=== PATIENT | male | born 1935 | race Caucasian/White ===

== ENCOUNTER 2019-02-12 14:08 | Inpatient (IN) ==
[2019-02-12] MEDS ORDERED: AZITHROMYCIN INJ 500 MG in SODIUM CHLORIDE 0.9% 250 ML IV STA (16:06)
[2019-02-12] MEDS ORDERED: ALBUTEROL/IPRATROPIUM 3 ML NEB RESP TX STA (16:06)
[2019-02-12] MEDS ORDERED: cefTRIAXone 1,000 MG in SODIUM CHLORIDE 0.9% 100 ML IV STA (16:06)
[2019-02-12 16:32] LABS: Basophils # 0.1 10*3/uL (0.0-0.2); Basophils % 0.8 % (0.0-0.8); Eosinophils # 0.2 10*3/uL (0.0-0.87); Eosinophils % 2.3 % (0.00-10.9); Hematocrit 38.5 VOL% (42.0-52.0); Hemoglobin 11.9 GM/DL (14.0-18.0); Immature Granulocytes % 0.9 %; Immature Granulocytes Absolute 0.07 #; Lymphocytes # 1.2 10*3/uL (1.4-4.0); Lymphocytes % 16.2 % (21.2-54.2); Mean Corpuscular HGB Conc 30.9 GM/DL (32-36); Mean Platelet Volume 11.3 FL (9.6-12.0); Neutrophils % 71.8 % (38.7-73.9); Platelet Count 151 T/CUMM (130-400); Red Blood Count 4.23 MC/CUMM (3.8-5.5); Red Cell Distribution Width 15.3 % (9.3-17.3); White Blood Count 7.5 T/CUMM (4-12)
[2019-02-12 16:56] LABS: Bilirubin,Total 0.6 MG/DL (0.2-1.0); Calcium 8.3 MG/DL (8.5-10.1); Osmolality,Calculated 294.3 MOS/KG (273-304); Total Protein 6.8 G/DL (6.4-8.3)
[2019-02-12] MEDS ORDERED: guaiFENesin/CODEINE 5 ML LIQUID PO PRN (18:09)
[2019-02-12] MEDS ORDERED: MAGNESIUM SULF RIDER 2 GM in PREMIX 1 EACH IV PRN (18:09)
[2019-02-12] MEDS ORDERED: POTASSIUM CHLORIDE RIDER 10 MEQ in PREMIX 1 EACH IV PRN (18:09)
[2019-02-12] MEDS ORDERED: MAGNESIUM SULF RIDER 4 GM in PREMIX 1 EACH IV PRN (18:09)
[2019-02-12] MEDS ORDERED: ALBUTEROL 2.5 MG/3 ML NEB RESP TX PRN (18:12)
[2019-02-12] MEDS ORDERED: ACETAMINOPHEN 325 MG TABLET PO ONE (19:38)
[2019-02-12] MEDS: ALBUTEROL/IPRATROPIUM 3 ML NEB RESP TX SCH (21:25)
[2019-02-12] MEDS: methylPREDNISolone SOD SUC 40 MG/1 ML VIAL IV SCH (22:18)
[2019-02-12] MEDS: guaiFENesin/DM ER 600-30 MG TABLET PO SCH (22:18)
[2019-02-12] MEDS: SODIUM CHLORIDE 23.4% CONC INJ 38.5 MEQ in STERILE WATER INJ 1,000 ML IV SCH (22:26)
[2019-02-13] MEDS: ALBUTEROL/IPRATROPIUM 3 ML NEB RESP TX SCH ×4 (01:02→20:20)
[2019-02-13 03:08] LABS: Apearance,Urine CLEAR (Clear); Bilirubin,Urine Negative (Negative); Blood, Urine Negative (Negative); Glucose,Urine (UA) Negative (Negative); Ketones,Urine Negative (Negative); Mucus,Urine Occasional /LPF (Occasional); Nitrite,Urine Negative (Negative); Protein,Urine 30 MG/DL; RBC,Urine 30 /HPF (0-4); Squamous Epithelial Cell,Urine Occasional /HPF (0-10); Urine Color Amber (Yellow); Urine Specific Gravity 1.029 (1.001-1.035); WBC,Urine 1 /HPF (0-6)
[2019-02-13 04:55] LABS: Basophils % 0.3 % (0.0-0.8); Eosinophils % 0.1 % (0.00-10.9); Hematocrit 37.3 VOL% (42.0-52.0); Hemoglobin 11.3 GM/DL (14.0-18.0); Immature Granulocytes % 0.6 %; Immature Granulocytes Absolute 0.05 #; Lymphocytes # 0.5 10*3/uL (1.4-4.0); Mean Corpuscular HGB Conc 30.3 GM/DL (32-36); Mean Corpuscular Volume 92.1 FL (87-102); Mean Platelet Volume 11.6 FL (9.6-12.0); Monocytes % 2.2 % (1.7-12.7); Neutrophils % 90.8 % (38.7-73.9); Platelet Count 148 T/CUMM (130-400); Red Blood Count 4.05 MC/CUMM (3.8-5.5); Red Cell Distribution Width 15.2 % (9.3-17.3); White Blood Count 7.9 T/CUMM (4-12)
[2019-02-13 05:17] LABS: Lymphocytes 4 % (20-55); Platelet Estimate Normal; Segmented Neutrophils 94 % (50-85); Total Cells Counted 100
[2019-02-13 05:18] LABS: Hypochromasia Slight; Ovalocytes Slight
[2019-02-13 05:21] LABS: Calcium 8.1 MG/DL (8.5-10.1); Osmolality,Calculated 291.8 MOS/KG (273-304)
[2019-02-13] MEDS ORDERED: ASPIRIN EC 81 MG TABLET PO SCH (06:00)
[2019-02-13] MEDS ORDERED: APIXABAN 5 MG TABLET PO SCH (06:00)
[2019-02-13] MEDS: methylPREDNISolone SOD SUC 40 MG/1 ML VIAL IV SCH ×3 (06:33→20:57)
[2019-02-13] MEDS: LEVOTHYROXINE 50 MCG TABLET PO SCH (06:34)
[2019-02-13] MEDS: MULTIVITAMIN (OCUVITE) TABLET PO SCH (08:51)
[2019-02-13] MEDS: guaiFENesin/DM ER 600-30 MG TABLET PO SCH ×2 (08:51→20:58)
[2019-02-13] MEDS: MULTIVITAMIN (CENTRUM) TABLET PO SCH (08:51)
[2019-02-13] MEDS: PRAMIPEXOLE 0.25 MG TABLET PO SCH ×3 (08:51→21:07)
[2019-02-13] MEDS: FUROSEMIDE 40 MG TABLET PO SCH ×2 (08:51→15:16)
[2019-02-13] MEDS: AMIODARONE 200 MG TABLET PO SCH ×2 (08:51→20:58)
[2019-02-13] MEDS: CALCIUM (CARBONATE)/VITAMIN D 600 MG-400 UNIT TABLET PO SCH (08:52)
[2019-02-13] MEDS: cefTRIAXone 1,000 MG in SYRINGE 1 EACH IV SCH (08:52)
[2019-02-13] MEDS: QUEtiapine 25 MG TABLET PO SCH (08:52)
[2019-02-13] MEDS: MEMANTINE 10 MG TABLET PO SCH ×2 (08:52→21:07)
[2019-02-13] MEDS: APIXABAN 5 MG TABLET PO SCH ×2 (10:51→20:57)
[2019-02-13] MEDS ORDERED: ENOXAPARIN 40 MG/0.4 ML SYRINGE SUBCUT SCH (12:00)
[2019-02-13] MEDS: ROSUVASTATIN 20 MG TABLET PO SCH (17:29)
[2019-02-13] MEDS: SODIUM CHLORIDE 23.4% CONC INJ 38.5 MEQ in STERILE WATER INJ 1,000 ML IV SCH (17:31)
[2019-02-13] MEDS: SODIUM CHLORIDE 3% 4 ML NEB RESP TX SCH (20:20)
[2019-02-13] MEDS: AZITHROMYCIN INJ 500 MG in SODIUM CHLORIDE 0.9% 250 ML IV SCH (21:08)
[2019-02-14] MEDS: ALBUTEROL/IPRATROPIUM 3 ML NEB RESP TX SCH ×4 (00:28→20:27)
[2019-02-14 05:28] LABS: Basophils % 0.1 % (0.0-0.8); Hematocrit 35.1 VOL% (42.0-52.0); Hemoglobin 11.2 GM/DL (14.0-18.0); Immature Granulocytes % 0.9 %; Immature Granulocytes Absolute 0.13 #; Lymphocytes # 0.4 10*3/uL (1.4-4.0); Mean Corpuscular HGB Conc 31.9 GM/DL (32-36); Mean Corpuscular Volume 88.6 FL (87-102); Mean Platelet Volume 11.5 FL (9.6-12.0); Monocytes % 3.5 % (1.7-12.7); Neutrophils % 92.5 % (38.7-73.9); Platelet Count 146 T/CUMM (130-400); Red Blood Count 3.96 MC/CUMM (3.8-5.5); Red Cell Distribution Width 15.4 % (9.3-17.3); White Blood Count 14.5 T/CUMM (4-12)
[2019-02-14 05:49] LABS: Calcium 7.8 MG/DL (8.5-10.1); Osmolality,Calculated 295.7 MOS/KG (273-304)
[2019-02-14] MEDS: methylPREDNISolone SOD SUC 40 MG/1 ML VIAL IV SCH ×2 (05:58→17:47)
[2019-02-14] MEDS: LEVOTHYROXINE 50 MCG TABLET PO SCH (06:02)
[2019-02-14 06:07] LABS: Band Neutrophils 3 % (0-10); Hypochromasia 1+; Lymphocytes 3 % (20-55); Microcytosis Slight; Myelocytes 1 %; Segmented Neutrophils 91 % (50-85); Total Cells Counted 100
[2019-02-14 06:08] LABS: Ovalocytes Slight; Platelet Estimate Adequate
[2019-02-14] MEDS: SODIUM CHLORIDE 3% 4 ML NEB RESP TX SCH ×2 (08:00→23:50)
[2019-02-14] MEDS ORDERED: FUROSEMIDE 40 MG TABLET PO SCH (09:01)
[2019-02-14] MEDS: AMIODARONE 200 MG TABLET PO SCH ×2 (09:49→20:54)
[2019-02-14] MEDS: MEMANTINE 10 MG TABLET PO SCH ×2 (09:49→20:54)
[2019-02-14] MEDS: PRAMIPEXOLE 0.25 MG TABLET PO SCH ×3 (09:49→20:54)
[2019-02-14] MEDS: MULTIVITAMIN (CENTRUM) TABLET PO SCH (09:49)
[2019-02-14] MEDS: MULTIVITAMIN (OCUVITE) TABLET PO SCH (09:49)
[2019-02-14] MEDS: QUEtiapine 25 MG TABLET PO SCH (09:50)
[2019-02-14] MEDS: guaiFENesin/DM ER 600-30 MG TABLET PO SCH ×2 (09:50→20:54)
[2019-02-14] MEDS: APIXABAN 5 MG TABLET PO SCH ×2 (09:50→20:54)
[2019-02-14] MEDS: cefTRIAXone 1,000 MG in SYRINGE 1 EACH IV SCH (09:50)
[2019-02-14] MEDS: CALCIUM (CARBONATE)/VITAMIN D 600 MG-400 UNIT TABLET PO SCH (09:50)
[2019-02-14] MEDS: FUROSEMIDE 40 MG TABLET PO SCH (09:51)
[2019-02-14] MEDS: ROSUVASTATIN 20 MG TABLET PO SCH (17:47)
[2019-02-14] MEDS: AZITHROMYCIN INJ 500 MG in SODIUM CHLORIDE 0.9% 250 ML IV SCH (20:55)
[2019-02-15] MEDS: ALBUTEROL/IPRATROPIUM 3 ML NEB RESP TX SCH ×2 (00:05→07:40)
[2019-02-15 06:03] LABS: Basophils % 0.2 % (0.0-0.8); Immature Granulocytes % 1.4 %; Immature Granulocytes Absolute 0.22 #; Lymphocytes # 0.5 10*3/uL (1.4-4.0); Lymphocytes % 3.2 % (21.2-54.2); Mean Corpuscular HGB Conc 31.4 GM/DL (32-36); Mean Corpuscular Volume 89.5 FL (87-102); Mean Platelet Volume 11.6 FL (9.6-12.0); Neutrophils % 92.2 % (38.7-73.9); Platelet Count 154 T/CUMM (130-400); Red Blood Count 3.91 MC/CUMM (3.8-5.5); Red Cell Distribution Width 15.6 % (9.3-17.3); White Blood Count 15.2 T/CUMM (4-12)
[2019-02-15] MEDS: methylPREDNISolone SOD SUC 40 MG/1 ML VIAL IV SCH (06:11)
[2019-02-15] MEDS: LEVOTHYROXINE 50 MCG TABLET PO SCH (06:11)
[2019-02-15 06:22] LABS: Calcium 8.1 MG/DL (8.5-10.1); Osmolality,Calculated 290.1 MOS/KG (273-304)
[2019-02-15 06:23] LABS: Lymphocytes 5 % (20-55); Platelet Estimate Adequate; Segmented Neutrophils 93 % (50-85); Total Cells Counted 100
[2019-02-15 06:24] LABS: Ovalocytes Few
[2019-02-15] MEDS: SODIUM CHLORIDE 3% 4 ML NEB RESP TX SCH (07:40)
[2019-02-15] MEDS ORDERED: predniSONE 20 MG TABLET PO SCH (09:00)
[2019-02-15] MEDS: cefTRIAXone 1,000 MG in SYRINGE 1 EACH IV SCH (09:51)
[2019-02-15] MEDS: MULTIVITAMIN (OCUVITE) TABLET PO SCH (09:52)
[2019-02-15] MEDS: guaiFENesin/DM ER 600-30 MG TABLET PO SCH (09:52)
[2019-02-15] MEDS: QUEtiapine 25 MG TABLET PO SCH (09:52)
[2019-02-15] MEDS: AMIODARONE 200 MG TABLET PO SCH (09:52)
[2019-02-15] MEDS: PRAMIPEXOLE 0.25 MG TABLET PO SCH (09:52)
[2019-02-15] MEDS: MEMANTINE 10 MG TABLET PO SCH (09:53)
[2019-02-15] MEDS: APIXABAN 5 MG TABLET PO SCH (09:53)
[2019-02-15] MEDS: CALCIUM (CARBONATE)/VITAMIN D 600 MG-400 UNIT TABLET PO SCH (09:53)
[2019-02-15] MEDS: MULTIVITAMIN (CENTRUM) TABLET PO SCH (09:53)
[2019-02-15 12:10] VITALS: BP 128/64
== END 2019-02-15 13:25 | disposition home or self-care (01) | DRG 190 ==
LOC: N.EDINP 14:08 → N.ED 14:08 → SUATTDRO 18:23 → N.5E 20:46
PROVIDERS: ADMIT Internal Medicine; ATTEND Internal Medicine

== ENCOUNTER 2019-09-08 01:28 | Inpatient (IN) ==
[2019-09-08] MEDS ORDERED: ACETAMINOPHEN 500 MG TABLET PO STA (01:44)
[2019-09-08] MEDS ORDERED: SODIUM CHLORIDE 0.9% 1,000 ML IV STA ×2 (01:44→04:21)
[2019-09-08 02:43] LABS: Basophils % 0.5 % (0.0-0.8); Eosinophils % 0.4 % (0.00-10.9); Hematocrit 27.3 VOL% (42.0-52.0); Hemoglobin 8.4 GM/DL (14.0-18.0); Immature Granulocytes % 1.4 %; Immature Granulocytes Absolute 0.11 #; Lymphocytes # 0.3 10*3/uL (1.4-4.0); Lymphocytes % 4.2 % (21.2-54.2); Mean Corpuscular HGB Conc 30.8 GM/DL (32-36); Mean Corpuscular Volume 89.5 FL (87-102); Mean Platelet Volume 10.2 FL (9.6-12.0); Monocytes % 2.6 % (1.7-12.7); Neutrophils % 90.9 % (38.7-73.9); Platelet Count 172 T/CUMM (130-400); Red Blood Count 3.05 MC/CUMM (3.8-5.5); Red Cell Distribution Width 17.2 % (9.3-17.3)
[2019-09-08 02:56] LABS: INR 1.2; PT Patient Result 12.5 SECS (9.8-11.9)
[2019-09-08 03:10] LABS: Albumin 2.4 G/DL (3.4-5.0); Bilirubin,Total 1.2 MG/DL (0.2-1.0); Total Protein 5.9 G/DL (6.4-8.3)
[2019-09-08 03:43] LABS: Band Neutrophils 3 % (0-10); Eosinophils 1 % (0-10); Lymphocytes 3 % (20-55); Microcytosis 1+; Platelet Estimate Normal; Segmented Neutrophils 92 % (50-85); Total Cells Counted 100
[2019-09-08 03:44] LABS: Hypochromasia Slight; Polychromasia Slight
[2019-09-08 03:49] LABS: Apearance,Urine Slightly Hazy (Clear); Bacteria,Urine Occasional /HPF (Few); Bilirubin,Urine Negative (Negative); Blood, Urine Small mg/dL (Negative); Glucose,Urine (UA) Negative (Negative); Ketones,Urine Negative (Negative); Mucus,Urine Occasional /LPF (Occasional); Nitrite,Urine Negative (Negative); Protein,Urine Negative; RBC,Urine 9 /HPF (0-4); Urine Color Yellow (Yellow); Urine Urobilinogen < 2.0 EU/DL (0.2-1.0); WBC,Urine 13 /HPF (0-6)
[2019-09-08] MEDS ORDERED: cefTRIAXone 1,000 MG in SODIUM CHLORIDE 0.9% 100 ML IV STA (04:04)
[2019-09-08 05:43] LABS: Basophils % 0.2 % (0.0-0.8); Hematocrit 22.9 VOL% (42.0-52.0); Hemoglobin 7.2 GM/DL (14.0-18.0); Immature Granulocytes % 7.3 %; Immature Granulocytes Absolute 0.69 #; Lymphocytes # 0.5 10*3/uL (1.4-4.0); Lymphocytes % 5.7 % (21.2-54.2); Mean Corpuscular HGB Conc 31.4 GM/DL (32-36); Mean Corpuscular Volume 87.7 FL (87-102); Mean Platelet Volume 10.2 FL (9.6-12.0); Neutrophils % 79.8 % (38.7-73.9); Platelet Count 145 T/CUMM (130-400); Red Blood Count 2.61 MC/CUMM (3.8-5.5); White Blood Count 9.5 T/CUMM (4-12)
[2019-09-08] MEDS ORDERED: ACETAMINOPHEN 325 MG TABLET PO PRN (05:56)
[2019-09-08] MEDS ORDERED: ZALEPLON 5 MG CAPSULE PO PRN (05:56)
[2019-09-08] MEDS ORDERED: hydrALAZINE 20 MG/1 ML VIAL IV PRN (05:56)
[2019-09-08] MEDS ORDERED: GLUCAGON 1 MG VIAL IM PRN (05:56)
[2019-09-08] MEDS ORDERED: PROMETHAZINE 25 MG/1 ML VIAL IM PRN (05:56)
[2019-09-08] MEDS ORDERED: ONDANSETRON 4 MG/2 ML VIAL IV PRN (05:56)
[2019-09-08] MEDS ORDERED: diphenhydrAMINE CAP 25 MG CAPSULE PO PRN (05:56)
[2019-09-08] MEDS ORDERED: DEXTROSE 50% 25 GM/50 ML VIAL IV PRN (05:56)
[2019-09-08] MEDS ORDERED: guaiFENesin/DM ER 600-30 MG TABLET PO PRN (05:56)
[2019-09-08] MEDS ORDERED: NICOTINE 21 MG/24 HR PATCH TRANSDERM PRN (05:56)
[2019-09-08] MEDS ORDERED: DOCUSATE SODIUM 100 MG CAPSULE PO PRN (05:56)
[2019-09-08] MEDS ORDERED: SODIUM CHLORIDE 0.9% 1,000 ML IV PRN (06:00)
[2019-09-08 06:26] LABS: Folate 14.9 NG/ML (5.4-24.0); Vitamin B12 676 PG/ML (211-911)
[2019-09-08 06:40] LABS: Band Neutrophils 18 % (0-10); Lymphocytes 5 % (20-55); Platelet Estimate Adequate; Segmented Neutrophils 74 % (50-85); Total Cells Counted 100
[2019-09-08 06:41] LABS: Smudge Cells Few
[2019-09-08 06:43] LABS: Anisocytosis 2+
[2019-09-08 06:57] LABS: Sedimentation Rate-Westergren 55 MM/HR (0-20)
[2019-09-08] MEDS: PANTOPRAZOLE 40 MG TABLET PO SCH (09:30)
[2019-09-08] MEDS: cefTRIAXone 1,000 MG in SYRINGE 1 EACH IV SCH (09:30)
[2019-09-08] MEDS: SODIUM CHLORIDE 0.9% 1,000 ML IV SCH (09:31)
[2019-09-08 17:14] LABS: Hematocrit 27.2 VOL% (42.0-52.0); Hemoglobin 8.8 GM/DL (14.0-18.0)
[2019-09-09] MEDS: SODIUM CHLORIDE 0.9% 1,000 ML IV SCH ×2 (01:26→13:27)
[2019-09-09] MEDS: cefTRIAXone 1,000 MG in SYRINGE 1 EACH IV SCH (05:08)
[2019-09-09 05:41] LABS: Basophils % 0.2 % (0.0-0.8); Eosinophils % 0.2 % (0.00-10.9); Hematocrit 28.2 VOL% (42.0-52.0); Hemoglobin 8.7 GM/DL (14.0-18.0); Immature Granulocytes % 0.8 %; Immature Granulocytes Absolute 0.09 #; Lymphocytes # 1.3 10*3/uL (1.4-4.0); Lymphocytes % 11.4 % (21.2-54.2); Mean Corpuscular HGB Conc 30.9 GM/DL (32-36); Mean Corpuscular Volume 89.8 FL (87-102); Mean Platelet Volume 10.1 FL (9.6-12.0); Monocytes % 12.5 % (1.7-12.7); Neutrophils % 74.9 % (38.7-73.9); Platelet Count 150 T/CUMM (130-400); Red Blood Count 3.14 MC/CUMM (3.8-5.5); Red Cell Distribution Width 17.2 % (9.3-17.3); White Blood Count 11.1 T/CUMM (4-12)
[2019-09-09 06:08] LABS: Band Neutrophils 9 % (0-10); Eosinophils 1 % (0-10); Hypochromasia 1+; Lymphocytes 10 % (20-55); Microcytosis 1+; Ovalocytes Slight; Segmented Neutrophils 73 % (50-85); Total Cells Counted 100
[2019-09-09 06:09] LABS: Platelet Estimate Adequate; Polychromasia Slight
[2019-09-09 06:14] LABS: Bilirubin,Total 0.6 MG/DL (0.2-1.0); Calcium 7.7 MG/DL (8.5-10.1); Osmolality,Calculated 287.1 MOS/KG (273-304); Total Protein 5.3 G/DL (6.4-8.3)
[2019-09-09] MEDS: PANTOPRAZOLE 40 MG TABLET PO SCH (08:24)
[2019-09-09 09:36] LABS: Hemoglobin A1 (Alkaline) 97.2 % (96.5-98.5); Hemoglobin A2 (Alkaline) 2.8 % (1.5-3.5)
[2019-09-09] MEDS ORDERED: ALBUTEROL 2.5 MG/3 ML NEB RESP TX PRN (14:36)
[2019-09-09] MEDS: QUEtiapine 25 MG TABLET PO SCH (17:26)
[2019-09-09] MEDS: PRAMIPEXOLE 0.25 MG TABLET PO SCH (17:26)
[2019-09-09 19:22] LABS: Apearance,Urine Slightly Hazy (Clear); Bilirubin,Urine Negative (Negative); Blood, Urine Negative (Negative); Glucose,Urine (UA) Negative (Negative); Ketones,Urine Negative (Negative); Nitrite,Urine Negative (Negative); Protein,Urine 30 MG/DL; RBC,Urine 2 /HPF (0-4); Urine Color Yellow (Yellow); Urine Specific Gravity 1.017 (1.001-1.035); Urine Urobilinogen < 2.0 EU/DL (0.2-1.0); WBC,Urine 15 /HPF (0-6)
[2019-09-09] MEDS: DUTASTERIDE 0.5 MG CAPSULE PO SCH (20:03)
[2019-09-09] MEDS: MEMANTINE 10 MG TABLET PO SCH (20:04)
[2019-09-10] MEDS: SODIUM CHLORIDE 0.9% 1,000 ML IV SCH ×2 (02:10→14:07)
[2019-09-10 05:38] LABS: Basophils % 0.4 % (0.0-0.8); Eosinophils # 0.1 10*3/uL (0.0-0.87); Eosinophils % 1.4 % (0.00-10.9); Hematocrit 27.3 VOL% (42.0-52.0); Hemoglobin 8.6 GM/DL (14.0-18.0); Immature Granulocytes % 0.7 %; Immature Granulocytes Absolute 0.05 #; Lymphocytes # 0.6 10*3/uL (1.4-4.0); Lymphocytes % 8.1 % (21.2-54.2); Mean Corpuscular HGB Conc 31.5 GM/DL (32-36); Mean Corpuscular Volume 86.9 FL (87-102); Mean Platelet Volume 11.2 FL (9.6-12.0); NRBC # 0.02 10*3/uL; Neutrophils % 81.4 % (38.7-73.9); Platelet Count 141 T/CUMM (130-400); Red Blood Count 3.14 MC/CUMM (3.8-5.5); Red Cell Distribution Width 17.2 % (9.3-17.3); White Blood Count 7.4 T/CUMM (4-12)
[2019-09-10 06:05] LABS: Band Neutrophils 1 % (0-10); Hypochromasia 1+; Lymphocytes 8 % (20-55); Platelet Estimate Adequate; Segmented Neutrophils 80 % (50-85); Total Cells Counted 100
[2019-09-10 06:06] LABS: Microcytosis 1+; Ovalocytes Slight
[2019-09-10 06:07] LABS: Calcium 7.4 MG/DL (8.5-10.1); Osmolality,Calculated 289.8 MOS/KG (273-304)
[2019-09-10] MEDS: cefTRIAXone 1,000 MG in SYRINGE 1 EACH IV SCH (06:10)
[2019-09-10] MEDS: PRAMIPEXOLE 0.25 MG TABLET PO SCH ×3 (06:12→18:09)
[2019-09-10] MEDS: CALCIUM (CARBONATE)/VITAMIN D 600 MG-400 UNIT TABLET PO SCH (06:12)
[2019-09-10] MEDS: MULTIVITAMIN (OCUVITE) TABLET PO SCH (06:12)
[2019-09-10] MEDS: LEVOTHYROXINE 75 MCG TABLET PO SCH (06:13)
[2019-09-10] MEDS: PANTOPRAZOLE 40 MG TABLET PO SCH (08:48)
[2019-09-10] MEDS: MEMANTINE 10 MG TABLET PO SCH ×2 (08:48→21:05)
[2019-09-10] MEDS: QUEtiapine 25 MG TABLET PO SCH (18:09)
[2019-09-10] MEDS: DUTASTERIDE 0.5 MG CAPSULE PO SCH (21:05)
[2019-09-11] MEDS: SODIUM CHLORIDE 0.9% 1,000 ML IV SCH ×2 (02:45→18:41)
[2019-09-11] MEDS: cefTRIAXone 1,000 MG in SYRINGE 1 EACH IV SCH (05:47)
[2019-09-11] MEDS: PRAMIPEXOLE 0.25 MG TABLET PO SCH ×3 (05:47→18:40)
[2019-09-11] MEDS: CALCIUM (CARBONATE)/VITAMIN D 600 MG-400 UNIT TABLET PO SCH (05:47)
[2019-09-11] MEDS: LEVOTHYROXINE 75 MCG TABLET PO SCH (05:47)
[2019-09-11] MEDS: MULTIVITAMIN (OCUVITE) TABLET PO SCH (05:47)
[2019-09-11 06:47] LABS: Calcium 7.4 MG/DL (8.5-10.1); Osmolality,Calculated 286.1 MOS/KG (273-304)
[2019-09-11] MEDS: MEMANTINE 10 MG TABLET PO SCH ×2 (08:34→20:07)
[2019-09-11] MEDS: PANTOPRAZOLE 40 MG TABLET PO SCH (08:35)
[2019-09-11] MEDS: QUEtiapine 25 MG TABLET PO SCH (18:41)
[2019-09-11] MEDS: DUTASTERIDE 0.5 MG CAPSULE PO SCH (20:06)
[2019-09-12] MEDS: CALCIUM (CARBONATE)/VITAMIN D 600 MG-400 UNIT TABLET PO SCH (05:50)
[2019-09-12] MEDS: PRAMIPEXOLE 0.25 MG TABLET PO SCH ×2 (05:51→13:29)
[2019-09-12] MEDS: LEVOTHYROXINE 75 MCG TABLET PO SCH (05:51)
[2019-09-12] MEDS: MULTIVITAMIN (OCUVITE) TABLET PO SCH (05:51)
[2019-09-12] MEDS: cefTRIAXone 1,000 MG in SYRINGE 1 EACH IV SCH (05:51)
[2019-09-12] MEDS: MEMANTINE 10 MG TABLET PO SCH (08:04)
[2019-09-12] MEDS: PANTOPRAZOLE 40 MG TABLET PO SCH (08:04)
[2019-09-12 11:59] VITALS: BP 137/72
== END 2019-09-12 15:55 | DRG 872 ==
LOC: SUATTDRO → N.ED 01:28 → N.EDINP 05:56 → SUATTDRO 05:56 → N.EDINP 08:08 → N.4E 08:27
PROVIDERS: ADMIT Internal Medicine; ATTEND Internal Medicine

== ENCOUNTER 2020-02-23 21:09 | Inpatient (IN) ==
[2020-02-23] MEDS ORDERED: SODIUM CHLORIDE 0.9% 1,000 ML IV STA (23:33)
[2020-02-24 00:52] LABS: Albumin 3.1 G/DL (3.4-5.0); Bilirubin,Total 1.3 MG/DL (0.2-1.0); Calcium 8.5 MG/DL (8.5-10.1); Osmolality,Calculated 293.3 MOS/KG (273-304); Total Protein 6.9 G/DL (6.4-8.3)
[2020-02-24 00:54] LABS: INR 1.1; PT Patient Result 12.2 SECS (9.8-11.9); Partial Thromboplastin Time 35.9 SECS (23.9-33.8)
[2020-02-24 01:00] LABS: Basophils % 0.3 % (0.0-0.8); Hemoglobin 13.6 GM/DL (14.0-18.0); Immature Granulocytes % 1.8 %; Immature Granulocytes Absolute 0.21 #; Lymphocytes # 0.9 10*3/uL (1.4-4.0); Lymphocytes % 7.4 % (21.2-54.2); Mean Corpuscular HGB Conc 31.6 GM/DL (32-36); Mean Corpuscular Volume 91.9 FL (87-102); Mean Platelet Volume 12.5 FL (9.6-12.0); Neutrophils % 80.5 % (38.7-73.9); Platelet Count 111 T/CUMM (130-400); Red Blood Count 4.68 MC/CUMM (3.8-5.5); White Blood Count 11.8 T/CUMM (4-12)
[2020-02-24 01:02] LABS: Bacteria,Urine Occasional /HPF (Few); Bilirubin,Urine Negative (Negative); Blood, Urine Negative (Negative); Glucose,Urine (UA) Negative (Negative); Granular Casts,Urine 1 /LPF (0-1); Hyaline Casts,Urine 5 /LPF (0-3); Ketones,Urine Negative (Negative); Mucus,Urine Occasional /LPF (Occasional); Nitrite,Urine Negative (Negative); Protein,Urine 30 MG/DL; RBC,Urine 1 /HPF (0-4); Urine Appearance CLEAR (Clear); Urine Color Yellow (Yellow); Urine Specific Gravity 1.021 (1.001-1.035); Urine Urobilinogen < 2.0 EU/DL (0.2-1.0); WBC,Urine 1 /HPF (0-6)
[2020-02-24] MEDS ORDERED: AMIODARONE INJ 150 MG in DEXTROSE 5% 100 ML IV ONE (02:50)
[2020-02-24] MEDS ORDERED: AMIODARONE INJ 450 MG in DEXTROSE 5% 241 ML IV SCH (03:00)
[2020-02-24] MEDS ORDERED: GLUCAGON 1 MG VIAL IM PRN (04:05)
[2020-02-24] MEDS ORDERED: DEXTROSE 50% 25 GM/50 ML VIAL IV PRN (04:05)
[2020-02-24] MEDS ORDERED: SODIUM CHLORIDE 0.9% 1,000 ML IV SCH (04:30)
[2020-02-24] MEDS ORDERED: traMADol 50 MG TABLET PO PRN (07:44)
[2020-02-24] MEDS ORDERED: FUROSEMIDE 40 MG/4 ML VIAL IV SCH (09:00)
[2020-02-24] MEDS: DONEPEZIL 10 MG TABLET PO SCH (09:06)
[2020-02-24] MEDS: METOPROLOL SUCCINATE XL 50 MG TABLET PO SCH ×2 (09:06→20:45)
[2020-02-24] MEDS: NEOMYCIN/POLYMYXIN/BACITRACIN OINT 0.9 GM PACK TOP SCH ×2 (09:11→20:45)
[2020-02-24] MEDS: PRAMIPEXOLE 0.25 MG TABLET PO SCH ×2 (11:53→17:16)
[2020-02-24] MEDS: ALBUTEROL/IPRATROPIUM 3 ML NEB RESP TX SCH ×2 (15:06→20:19)
[2020-02-24] MEDS: APIXABAN 5 MG TABLET PO SCH (17:16)
[2020-02-24] MEDS: QUEtiapine 25 MG TABLET PO SCH (17:17)
[2020-02-24] MEDS: DUTASTERIDE 0.5 MG CAPSULE PO SCH (20:45)
[2020-02-25] MEDS: ALBUTEROL/IPRATROPIUM 3 ML NEB RESP TX SCH ×3 (02:14→08:29)
[2020-02-25 05:53] LABS: Basophils % 0.5 % (0.0-0.8); Eosinophils # 0.1 10*3/uL (0.0-0.87); Eosinophils % 1.2 % (0.00-10.9); Hematocrit 41.6 VOL% (42.0-52.0); Hemoglobin 13.1 GM/DL (14.0-18.0); Immature Granulocytes % 1.2 %; Immature Granulocytes Absolute 0.09 #; Lymphocytes # 1.2 10*3/uL (1.4-4.0); Lymphocytes % 16.5 % (21.2-54.2); Mean Corpuscular HGB Conc 31.5 GM/DL (32-36); Mean Corpuscular Volume 91.8 FL (87-102); Mean Platelet Volume 12.6 FL (9.6-12.0); Monocytes % 10.8 % (1.7-12.7); NRBC # 0.03 10*3/uL; Neutrophils % 69.8 % (38.7-73.9); Platelet Count 109 T/CUMM (130-400); Red Blood Count 4.53 MC/CUMM (3.8-5.5); Red Cell Distribution Width 16.8 % (9.3-17.3); White Blood Count 7.5 T/CUMM (4-12)
[2020-02-25] MEDS ORDERED: LEVOTHYROXINE 75 MCG TABLET PO SCH (06:00)
[2020-02-25 06:02] LABS: Calcium 8.1 MG/DL (8.5-10.1); Osmolality,Calculated 287.5 MOS/KG (273-304)
[2020-02-25 06:08] LABS: Albumin 2.5 G/DL (3.4-5.0); Bilirubin,Total 1.8 MG/DL (0.2-1.0); Osmolality,Calculated 293.1 MOS/KG (273-304); Total Protein 6.2 G/DL (6.4-8.3)
[2020-02-25 06:09] LABS: Albumin 2.7 G/DL (3.4-5.0); Bilirubin,Direct 0.46 MG/DL (0.0-0.20); Bilirubin,Indirect 1.4 MG/DL (0.0-1.0); Bilirubin,Total 1.9 MG/DL (0.2-1.0); Total Protein 6.4 G/DL (6.4-8.3)
[2020-02-25] MEDS: ASPIRIN EC 81 MG TABLET PO SCH (06:15)
[2020-02-25] MEDS: PRAMIPEXOLE 0.25 MG TABLET PO SCH ×3 (06:15→17:50)
[2020-02-25] MEDS: DONEPEZIL 10 MG TABLET PO SCH (06:15)
[2020-02-25] MEDS: LEVOTHYROXINE 88 MCG TABLET PO SCH (06:15)
[2020-02-25] MEDS: MEMANTINE 10 MG TABLET PO SCH ×2 (06:16→17:50)
[2020-02-25] MEDS: APIXABAN 5 MG TABLET PO SCH ×2 (06:16→17:50)
[2020-02-25] MEDS ORDERED: METOPROLOL TARTRATE 5 MG/5 ML VIAL IV ONE (07:34)
[2020-02-25] MEDS: MULTIVITAMIN (OCUVITE) TABLET PO SCH (08:26)
[2020-02-25] MEDS: NEOMYCIN/POLYMYXIN/BACITRACIN OINT 0.9 GM PACK TOP SCH ×2 (08:26→21:23)
[2020-02-25] MEDS: METOPROLOL SUCCINATE XL 100 MG TABLET PO SCH ×2 (08:27→21:23)
[2020-02-25] MEDS: CALCIUM (CARBONATE)/VITAMIN D 600 MG-400 UNIT TABLET PO SCH (08:27)
[2020-02-25] MEDS ORDERED: ALBUTEROL 2.5 MG/3 ML NEB RESP TX SCH (09:00)
[2020-02-25 09:30] LABS: Hepatitis B Core IgM Quant 0.07 Index; Hepatitis B Surface Ag Quant < 0.10 Index; Hepatitis B Surface Ag Result Negative (Negative); Hepatitis C Virus Ab Quant 0.07 Index; Hepatitis C Virus Ab Result Negative (Negative)
[2020-02-25] MEDS: LEVALBUTEROL 1.25 MG/3 ML NEB RESP TX SCH ×2 (13:47→19:27)
[2020-02-25] MEDS: FUROSEMIDE 40 MG/4 ML VIAL IV SCH (16:27)
[2020-02-25] MEDS: QUEtiapine 25 MG TABLET PO SCH (17:51)
[2020-02-25] MEDS: DUTASTERIDE 0.5 MG CAPSULE PO SCH (21:23)
[2020-02-26] MEDS: LEVALBUTEROL 1.25 MG/3 ML NEB RESP TX SCH ×4 (02:07→19:55)
[2020-02-26 05:39] LABS: Basophils # 0.1 10*3/uL (0.0-0.2); Basophils % 0.9 % (0.0-0.8); Eosinophils # 0.2 10*3/uL (0.0-0.87); Eosinophils % 2.8 % (0.00-10.9); Hematocrit 41.6 VOL% (42.0-52.0); Hemoglobin 13.1 GM/DL (14.0-18.0); Immature Granulocytes % 2.4 %; Lymphocytes # 1.3 10*3/uL (1.4-4.0); Lymphocytes % 15.8 % (21.2-54.2); Mean Corpuscular HGB Conc 31.5 GM/DL (32-36); Mean Corpuscular Volume 92.2 FL (87-102); Mean Platelet Volume 12.2 FL (9.6-12.0); Monocytes % 12.6 % (1.7-12.7); NRBC # 0.05 10*3/uL; Neutrophils % 65.5 % (38.7-73.9); Platelet Count 116 T/CUMM (130-400); Red Blood Count 4.51 MC/CUMM (3.8-5.5); White Blood Count 8.5 T/CUMM (4-12)
[2020-02-26] MEDS: PRAMIPEXOLE 0.25 MG TABLET PO SCH ×3 (05:55→17:06)
[2020-02-26] MEDS: APIXABAN 5 MG TABLET PO SCH ×2 (05:56→17:06)
[2020-02-26] MEDS: LEVOTHYROXINE 88 MCG TABLET PO SCH (05:56)
[2020-02-26] MEDS: DONEPEZIL 10 MG TABLET PO SCH (05:56)
[2020-02-26] MEDS: ASPIRIN EC 81 MG TABLET PO SCH (05:56)
[2020-02-26] MEDS: MEMANTINE 10 MG TABLET PO SCH ×2 (05:56→17:06)
[2020-02-26] MEDS: FUROSEMIDE 40 MG/4 ML VIAL IV SCH ×2 (08:33→17:05)
[2020-02-26] MEDS: MULTIVITAMIN (OCUVITE) TABLET PO SCH (08:33)
[2020-02-26] MEDS: METOPROLOL SUCCINATE XL 100 MG TABLET PO SCH ×3 (08:34→22:20)
[2020-02-26] MEDS: NEOMYCIN/POLYMYXIN/BACITRACIN OINT 0.9 GM PACK TOP SCH ×2 (08:35→22:20)
[2020-02-26] MEDS: CALCIUM (CARBONATE)/VITAMIN D 600 MG-400 UNIT TABLET PO SCH (09:16)
[2020-02-26 09:38] LABS: Albumin 2.8 G/DL (3.4-5.0); Bilirubin,Direct 0.64 MG/DL (0.0-0.20); Bilirubin,Total 1.6 MG/DL (0.2-1.0); Total Protein 6.5 G/DL (6.4-8.3)
[2020-02-26] MEDS: QUEtiapine 25 MG TABLET PO SCH (17:06)
[2020-02-26] MEDS: DUTASTERIDE 0.5 MG CAPSULE PO SCH (22:20)
[2020-02-27] MEDS: LEVALBUTEROL 1.25 MG/3 ML NEB RESP TX SCH ×2 (00:49→07:15)
[2020-02-27 05:35] LABS: Basophils # 0.1 10*3/uL (0.0-0.2); Basophils % 0.9 % (0.0-0.8); Eosinophils # 0.3 10*3/uL (0.0-0.87); Eosinophils % 2.4 % (0.00-10.9); Hematocrit 43.6 VOL% (42.0-52.0); Hemoglobin 13.8 GM/DL (14.0-18.0); Immature Granulocytes % 5.1 %; Immature Granulocytes Absolute 0.54 #; Lymphocytes # 1.8 10*3/uL (1.4-4.0); Lymphocytes % 17.3 % (21.2-54.2); Mean Corpuscular HGB Conc 31.7 GM/DL (32-36); Mean Corpuscular Volume 91.6 FL (87-102); Mean Platelet Volume 12.1 FL (9.6-12.0); Monocytes % 11.2 % (1.7-12.7); Neutrophils % 63.1 % (38.7-73.9); Platelet Count 133 T/CUMM (130-400); Red Blood Count 4.76 MC/CUMM (3.8-5.5); White Blood Count 10.5 T/CUMM (4-12)
[2020-02-27] MEDS: PRAMIPEXOLE 0.25 MG TABLET PO SCH (05:42)
[2020-02-27] MEDS: DONEPEZIL 10 MG TABLET PO SCH (05:42)
[2020-02-27] MEDS: LEVOTHYROXINE 88 MCG TABLET PO SCH (05:42)
[2020-02-27] MEDS: ASPIRIN EC 81 MG TABLET PO SCH (05:43)
[2020-02-27] MEDS: APIXABAN 5 MG TABLET PO SCH (05:43)
[2020-02-27] MEDS: MEMANTINE 10 MG TABLET PO SCH (05:43)
[2020-02-27 06:07] LABS: Calcium 8.3 MG/DL (8.5-10.1); Osmolality,Calculated 292.3 MOS/KG (273-304)
[2020-02-27 06:40] LABS: Band Neutrophils 7 % (0-10); Eosinophils 2 % (0-10); Lymphocytes 20 % (20-55); Metamyelocytes 1 %; Myelocytes 1 %; Nucleated Red Blood Cells 2 (0-5); Segmented Neutrophils 55 % (50-85); Total Cells Counted 100
[2020-02-27 06:41] LABS: Atypical Lymphocytes Few
[2020-02-27 06:46] LABS: Anisocytosis Slight; Ovalocytes Few
[2020-02-27 06:51] LABS: Burr Cells Few
[2020-02-27] MEDS ORDERED: FUROSEMIDE 40 MG TABLET PO SCH (08:00)
[2020-02-27] MEDS: MULTIVITAMIN (OCUVITE) TABLET PO SCH (08:13)
[2020-02-27] MEDS: NEOMYCIN/POLYMYXIN/BACITRACIN OINT 0.9 GM PACK TOP SCH (08:13)
[2020-02-27] MEDS: CALCIUM (CARBONATE)/VITAMIN D 600 MG-400 UNIT TABLET PO SCH (08:14)
[2020-02-27] MEDS: METOPROLOL SUCCINATE XL 100 MG TABLET PO SCH (08:14)
[2020-02-27 08:38] VITALS: BP 104/81
== END 2020-02-27 11:32 | disposition home health service (06) | DRG 291 ==
LOC: N.ED 21:09 → N.EDINP 02-24 04:05 → N.TELES 02-24 05:54
PROVIDERS: ADMIT Internal Medicine; ATTEND Internal Medicine

== ENCOUNTER 2020-03-01 12:53 | Inpatient (IN) ==
[2020-03-01] MEDS ORDERED: METOPROLOL TARTRATE 25 MG TABLET PO STA (14:38)
[2020-03-01 15:24] LABS: Basophils # 0.1 10*3/uL (0.0-0.2); Basophils % 0.4 % (0.0-0.8); Hematocrit 46.1 VOL% (42.0-52.0); Hemoglobin 14.6 GM/DL (14.0-18.0); Immature Granulocytes % 3.5 %; Immature Granulocytes Absolute 0.56 #; Lymphocytes % 6.2 % (21.2-54.2); Mean Corpuscular HGB Conc 31.7 GM/DL (32-36); Mean Corpuscular Volume 90.7 FL (87-102); Mean Platelet Volume 11.1 FL (9.6-12.0); Monocytes % 7.3 % (1.7-12.7); NRBC # 0.17 10*3/uL; Neutrophils % 82.6 % (38.7-73.9); Platelet Count 148 T/CUMM (130-400); Red Blood Count 5.08 MC/CUMM (3.8-5.5); Red Cell Distribution Width 18.2 % (9.3-17.3); White Blood Count 16.1 T/CUMM (4-12)
[2020-03-01 15:46] LABS: Anisocytosis 1+; Hypochromasia Slight; Lymphocytes 5 % (20-55); Nucleated Red Blood Cells 1 (0-5); Platelet Estimate Adequate; Polychromasia 1+; Segmented Neutrophils 89 % (50-85); Total Cells Counted 100
[2020-03-01 15:47] LABS: Elliptocytes Few
[2020-03-01 15:48] LABS: Calcium 8.6 MG/DL (8.5-10.1); Osmolality,Calculated 307.8 MOS/KG (273-304)
[2020-03-01] MEDS ORDERED: LACTATED RINGERS 500 ML IV ONE (15:53)
[2020-03-01 16:38] LABS: Bilirubin,Urine Negative (Negative); Blood, Urine Negative (Negative); Glucose,Urine (UA) Negative (Negative); Hyaline Casts,Urine 8 /LPF (0-3); Ketones,Urine Negative (Negative); Mucus,Urine Occasional /LPF (Occasional); Nitrite,Urine Negative (Negative); Protein,Urine 100 MG/DL; RBC,Urine 1 /HPF (0-4); Squamous Epithelial Cell,Urine Occasional /HPF (0-10); Urine Appearance Slightly Hazy (Clear); Urine Color Amber (Yellow); WBC,Urine 2 /HPF (0-6)
[2020-03-01] MEDS ORDERED: LACTATED RINGERS 1,000 ML IV ONE (16:49)
[2020-03-01] MEDS ORDERED: PIPERACILLIN/TAZOBACTAM 3,375 MG in SODIUM CHLORIDE 0.9% 100 ML IV STA ×2 (16:51→16:54)
[2020-03-01] MEDS ORDERED: ONDANSETRON 4 MG/2 ML VIAL IV PRN (17:24)
[2020-03-01] MEDS ORDERED: GLUCAGON 1 MG VIAL IM PRN (17:24)
[2020-03-01] MEDS ORDERED: DEXTROSE 50% 25 GM/50 ML VIAL IV PRN (17:24)
[2020-03-01] MEDS ORDERED: APIXABAN 5 MG TABLET PO ONE (20:14)
[2020-03-01] MEDS: PRAMIPEXOLE 0.25 MG TABLET PO SCH (21:39)
[2020-03-01] MEDS: DUTASTERIDE 0.5 MG CAPSULE PO SCH (21:39)
[2020-03-01] MEDS: METOPROLOL SUCCINATE XL 100 MG TABLET PO SCH (21:39)
[2020-03-01] MEDS: SODIUM CHLORIDE 0.45% 1,000 ML IV SCH (21:42)
[2020-03-01] MEDS: cefTRIAXone 1,000 MG in SYRINGE 1 EACH IV SCH (21:42)
[2020-03-01] MEDS: NEOMYCIN/POLYMYXIN/BACITRACIN OINT 0.9 GM PACK TOP SCH ×2 (22:18→22:20)
[2020-03-02 02:57] LABS: Basophils % 0.2 % (0.0-0.8); Hematocrit 41.5 VOL% (42.0-52.0); Hemoglobin 13.5 GM/DL (14.0-18.0); Immature Granulocytes % 1.7 %; Immature Granulocytes Absolute 0.25 #; Lymphocytes # 1.3 10*3/uL (1.4-4.0); Lymphocytes % 8.7 % (21.2-54.2); Mean Corpuscular HGB Conc 32.5 GM/DL (32-36); Mean Corpuscular Volume 90.4 FL (87-102); Mean Platelet Volume 11.6 FL (9.6-12.0); Monocytes % 7.5 % (1.7-12.7); Neutrophils % 81.9 % (38.7-73.9); Platelet Count 132 T/CUMM (130-400); Red Blood Count 4.59 MC/CUMM (3.8-5.5); Red Cell Distribution Width 18.3 % (9.3-17.3); White Blood Count 14.6 T/CUMM (4-12)
[2020-03-02 03:20] LABS: Calcium 7.8 MG/DL (8.5-10.1); Osmolality,Calculated 299.1 MOS/KG (273-304)
[2020-03-02] MEDS ORDERED: LEVOTHYROXINE 75 MCG TABLET PO SCH (06:00)
[2020-03-02] MEDS: ASPIRIN EC 81 MG TABLET PO SCH (06:14)
[2020-03-02] MEDS: PRAMIPEXOLE 0.25 MG TABLET PO SCH ×3 (06:14→17:26)
[2020-03-02] MEDS: APIXABAN 5 MG TABLET PO SCH ×2 (06:14→17:26)
[2020-03-02] MEDS: CALCIUM (CARBONATE)/VITAMIN D 600 MG-400 UNIT TABLET PO SCH (06:14)
[2020-03-02] MEDS: MEMANTINE 28 MG PO SCH (06:16)
[2020-03-02] MEDS: NON-FORMULARY MEDICATION (Vit C,E-Zn-Coppr-Lutein-Zeaxan [Preservision Areds-2] 250-200-40 PO SCH (06:17)
[2020-03-02] MEDS: NEOMYCIN/POLYMYXIN/BACITRACIN OINT 0.9 GM PACK TOP SCH ×2 (09:00→21:07)
[2020-03-02] MEDS: METOPROLOL SUCCINATE XL 100 MG TABLET PO SCH ×2 (09:00→21:07)
[2020-03-02] MEDS: SODIUM CHLORIDE 0.45% 1,000 ML IV SCH (17:49)
[2020-03-02] MEDS: cefTRIAXone 1,000 MG in SYRINGE 1 EACH IV SCH (21:07)
[2020-03-02] MEDS: DUTASTERIDE 0.5 MG CAPSULE PO SCH (21:07)
[2020-03-02] MEDS: ACETAMINOPHEN 325 MG TABLET PO PRN (23:55)
[2020-03-03] MEDS: PRAMIPEXOLE 0.25 MG TABLET PO SCH ×3 (05:49→17:47)
[2020-03-03] MEDS: LEVOTHYROXINE 88 MCG TABLET PO SCH (05:49)
[2020-03-03] MEDS: ASPIRIN EC 81 MG TABLET PO SCH (05:49)
[2020-03-03] MEDS: APIXABAN 5 MG TABLET PO SCH ×2 (05:49→17:48)
[2020-03-03] MEDS: CALCIUM (CARBONATE)/VITAMIN D 600 MG-400 UNIT TABLET PO SCH (05:49)
[2020-03-03] MEDS: MEMANTINE 28 MG PO SCH (05:51)
[2020-03-03] MEDS: NON-FORMULARY MEDICATION (Vit C,E-Zn-Coppr-Lutein-Zeaxan [Preservision Areds-2] 250-200-40 PO SCH (05:52)
[2020-03-03 06:02] LABS: Basophils # 0.1 10*3/uL (0.0-0.2); Basophils % 0.4 % (0.0-0.8); Eosinophils # 0.1 10*3/uL (0.0-0.87); Hematocrit 43.6 VOL% (42.0-52.0); Hemoglobin 13.8 GM/DL (14.0-18.0); Immature Granulocytes % 1.7 %; Immature Granulocytes Absolute 0.21 #; Lymphocytes # 1.5 10*3/uL (1.4-4.0); Lymphocytes % 12.1 % (21.2-54.2); Mean Corpuscular HGB Conc 31.7 GM/DL (32-36); Mean Corpuscular Volume 92.2 FL (87-102); Mean Platelet Volume 11.7 FL (9.6-12.0); Monocytes % 7.7 % (1.7-12.7); NRBC # 0.07 10*3/uL; Neutrophils % 77.1 % (38.7-73.9); Platelet Count 111 T/CUMM (130-400); Red Blood Count 4.73 MC/CUMM (3.8-5.5); Red Cell Distribution Width 18.1 % (9.3-17.3); White Blood Count 12.6 T/CUMM (4-12)
[2020-03-03 06:37] LABS: Calcium 8.1 MG/DL (8.5-10.1); Osmolality,Calculated 296.1 MOS/KG (273-304)
[2020-03-03] MEDS: ACETAMINOPHEN 325 MG TABLET PO PRN ×2 (06:57→23:30)
[2020-03-03] MEDS: METOPROLOL SUCCINATE XL 100 MG TABLET PO SCH ×2 (08:28→22:12)
[2020-03-03] MEDS: NEOMYCIN/POLYMYXIN/BACITRACIN OINT 0.9 GM PACK TOP SCH ×2 (08:28→22:18)
[2020-03-03] MEDS: DILTIAZEM CD 240 MG CAPSULE PO SCH (08:30)
[2020-03-03 09:35] LABS: Albumin 2.5 G/DL (3.4-5.0); Bilirubin,Total 1.8 MG/DL (0.2-1.0); Calcium 8.3 MG/DL (8.5-10.1); Osmolality,Calculated 297.1 MOS/KG (273-304); Total Protein 5.7 G/DL (6.4-8.3)
[2020-03-03] MEDS: SODIUM CHLORIDE 0.45% 1,000 ML IV SCH (14:11)
[2020-03-03] MEDS: DUTASTERIDE 0.5 MG CAPSULE PO SCH (22:12)
[2020-03-03] MEDS: cefTRIAXone 1,000 MG in SYRINGE 1 EACH IV SCH (22:17)
[2020-03-04] MEDS: PRAMIPEXOLE 0.25 MG TABLET PO SCH ×2 (05:47→14:13)
[2020-03-04] MEDS: LEVOTHYROXINE 88 MCG TABLET PO SCH (05:47)
[2020-03-04] MEDS: APIXABAN 5 MG TABLET PO SCH (05:47)
[2020-03-04] MEDS: ASPIRIN EC 81 MG TABLET PO SCH (05:47)
[2020-03-04] MEDS: MEMANTINE 28 MG PO SCH (05:49)
[2020-03-04] MEDS: CALCIUM (CARBONATE)/VITAMIN D 600 MG-400 UNIT TABLET PO SCH (05:52)
[2020-03-04 05:55] LABS: Basophils # 0.1 10*3/uL (0.0-0.2); Basophils % 0.4 % (0.0-0.8); Eosinophils # 0.2 10*3/uL (0.0-0.87); Eosinophils % 1.5 % (0.00-10.9); Hematocrit 41.8 VOL% (42.0-52.0); Hemoglobin 13.2 GM/DL (14.0-18.0); Immature Granulocytes % 2.3 %; Immature Granulocytes Absolute 0.28 #; Lymphocytes # 1.5 10*3/uL (1.4-4.0); Lymphocytes % 11.9 % (21.2-54.2); Mean Corpuscular HGB Conc 31.6 GM/DL (32-36); Mean Corpuscular Volume 91.7 FL (87-102); Monocytes % 7.5 % (1.7-12.7); NRBC # 0.05 10*3/uL; Neutrophils % 76.4 % (38.7-73.9); Platelet Count 117 T/CUMM (130-400); Red Blood Count 4.56 MC/CUMM (3.8-5.5); Red Cell Distribution Width 18.3 % (9.3-17.3); White Blood Count 12.2 T/CUMM (4-12)
[2020-03-04] MEDS: NON-FORMULARY MEDICATION (Vit C,E-Zn-Coppr-Lutein-Zeaxan [Preservision Areds-2] 250-200-40 PO SCH (05:56)
[2020-03-04 06:14] LABS: Calcium 7.9 MG/DL (8.5-10.1); Osmolality,Calculated 292.1 MOS/KG (273-304)
[2020-03-04 06:18] LABS: Albumin 2.4 G/DL (3.4-5.0); Bilirubin,Direct 0.53 MG/DL (0.0-0.20); Bilirubin,Indirect 0.8 MG/DL (0.0-1.0); Bilirubin,Total 1.3 MG/DL (0.2-1.0); Total Protein 5.5 G/DL (6.4-8.3)
[2020-03-04] MEDS ORDERED: FUROSEMIDE 40 MG TABLET PO SCH (09:00)
[2020-03-04] MEDS: NEOMYCIN/POLYMYXIN/BACITRACIN OINT 0.9 GM PACK TOP SCH (09:46)
[2020-03-04] MEDS: METOPROLOL SUCCINATE XL 100 MG TABLET PO SCH (09:46)
[2020-03-04] MEDS: DILTIAZEM CD 240 MG CAPSULE PO SCH (09:46)
[2020-03-04 11:58] VITALS: BP 112/74
== END 2020-03-04 15:38 | disposition swing bed (61) | DRG 682 ==
LOC: N.ED 12:53 → N.EDINP 17:24 → N.TELES 20:48
PROVIDERS: ADMIT Internal Medicine; ATTEND Internal Medicine

== ENCOUNTER 2020-05-07 10:42 | Observation (INO) ==
[2020-05-07 11:47] LABS: Basophils # 0.1 10*3/uL (0.0-0.2); Basophils % 0.4 % (0.0-0.8); Eosinophils % 0.4 % (0.00-10.9); Hematocrit 41.5 VOL% (42.0-52.0); Hemoglobin 12.7 GM/DL (14.0-18.0); Immature Granulocytes % 0.6 %; Immature Granulocytes Absolute 0.07 #; Lymphocytes # 1.2 10*3/uL (1.4-4.0); Lymphocytes % 10.6 % (21.2-54.2); Mean Corpuscular HGB Conc 30.6 GM/DL (32-36); Mean Corpuscular Volume 94.3 FL (87-102); Mean Platelet Volume 12.6 FL (9.6-12.0); Monocytes % 8.2 % (1.7-12.7); Neutrophils % 79.8 % (38.7-73.9); Platelet Count 102 T/CUMM (130-400); Red Cell Distribution Width 18.4 % (9.3-17.3); White Blood Count 11.3 T/CUMM (4-12)
[2020-05-07 11:54] LABS: INR 1.3; PT Patient Result 13.7 SECS (9.8-11.9); Partial Thromboplastin Time 37.2 SECS (23.9-33.8)
[2020-05-07 12:06] LABS: Albumin 2.7 G/DL (3.4-5.0); Bilirubin,Total 2.2 MG/DL (0.2-1.0); Calcium 8.2 MG/DL (8.5-10.1); Osmolality,Calculated 291.8 MOS/KG (273-304); Potassium 3.7 MMOL/L (3.5-5.1); Total Protein 6.5 G/DL (5.0-7.5)
[2020-05-07 12:27] LABS: Prealbumin 13.3 MG/DL (20-40); Thyroid Stimulating Hormone 2.75 uIU/ml (0.358-3.74)
[2020-05-07] MEDS ORDERED: ONDANSETRON 4 MG/2 ML VIAL IV PRN (13:14)
[2020-05-07] MEDS ORDERED: DEXTROSE 50% 25 GM/50 ML VIAL IV PRN (13:14)
[2020-05-07] MEDS ORDERED: ACETAMINOPHEN 325 MG TABLET PO PRN (13:14)
[2020-05-07] MEDS ORDERED: GLUCAGON 1 MG VIAL IM PRN (13:14)
[2020-05-07] MEDS ORDERED: CEFTAROLINE 400 MG in SODIUM CHLORIDE 0.9% 100 ML IV SCH (13:30)
[2020-05-07] MEDS: cefTRIAXone 1,000 MG in SYRINGE 1 EACH IV SCH (16:04)
[2020-05-07] MEDS: FUROSEMIDE 40 MG/4 ML VIAL IV SCH (16:04)
[2020-05-07 17:31] LABS: Bacteria,Urine Occasional /HPF (Few); Bilirubin,Urine Negative (Negative); Blood, Urine Negative (Negative); Glucose,Urine (UA) Negative (Negative); Hyaline Casts,Urine 11 /LPF (0-3); Ketones,Urine Negative (Negative); Mucus,Urine Occasional /LPF (Occasional); Nitrite,Urine Negative (Negative); Protein,Urine 30 MG/DL; RBC,Urine 1 /HPF (0-4); Squamous Epithelial Cell,Urine Occasional /HPF (0-10); Urine Appearance CLEAR (Clear); Urine Color Yellow (Yellow); Urine Specific Gravity 1.015 (1.001-1.035); WBC,Urine 2 /HPF (0-6)
[2020-05-07] MEDS: QUEtiapine 25 MG TABLET PO SCH (17:41)
[2020-05-07] MEDS: PRAMIPEXOLE 0.25 MG TABLET PO SCH (17:41)
[2020-05-07] MEDS: DUTASTERIDE 0.5 MG CAPSULE PO SCH (22:35)
[2020-05-07] MEDS: METOPROLOL SUCCINATE XL 100 MG TABLET PO SCH (22:35)
[2020-05-07] MEDS: APIXABAN 2.5 MG TABLET PO SCH (22:35)
[2020-05-08] MEDS: ASPIRIN CHEW 81 MG TABLET PO SCH (05:35)
[2020-05-08] MEDS: CALCIUM (CARBONATE)/VITAMIN D 600 MG-400 UNIT TABLET PO SCH (05:35)
[2020-05-08] MEDS: PRAMIPEXOLE 0.25 MG TABLET PO SCH ×3 (05:35→17:24)
[2020-05-08] MEDS: LEVOTHYROXINE 88 MCG TABLET PO SCH (05:36)
[2020-05-08] MEDS: MULTIVITAMIN (OCUVITE) TABLET PO SCH (05:36)
[2020-05-08 05:58] LABS: Basophils % 0.4 % (0.0-0.8); Eosinophils # 0.1 10*3/uL (0.0-0.87); Eosinophils % 0.9 % (0.00-10.9); Hematocrit 39.1 VOL% (42.0-52.0); Hemoglobin 11.9 GM/DL (14.0-18.0); Immature Granulocytes % 0.6 %; Immature Granulocytes Absolute 0.06 #; Lymphocytes # 1.2 10*3/uL (1.4-4.0); Lymphocytes % 12.1 % (21.2-54.2); Mean Corpuscular HGB Conc 30.4 GM/DL (32-36); Mean Corpuscular Volume 94.2 FL (87-102); Mean Platelet Volume 12.1 FL (9.6-12.0); Platelet Count 96 T/CUMM (130-400); Red Blood Count 4.15 MC/CUMM (3.8-5.5); Red Cell Distribution Width 18.2 % (9.3-17.3); White Blood Count 9.5 T/CUMM (4-12)
[2020-05-08 06:11] LABS: Osmolality,Calculated 286.1 MOS/KG (273-304); Potassium 3.2 MMOL/L (3.5-5.1)
[2020-05-08] MEDS ORDERED: POTASSIUM CHLORIDE 20 MEQ TABLET PO ONE (07:44)
[2020-05-08] MEDS: PANTOPRAZOLE 40 MG TABLET PO SCH (09:23)
[2020-05-08] MEDS: FERROUS SULFATE 325 MG TABLET PO SCH (09:23)
[2020-05-08] MEDS: DILTIAZEM CD 240 MG CAPSULE PO SCH (09:23)
[2020-05-08] MEDS: MEMANTINE 10 MG TABLET PO SCH ×2 (09:23→21:02)
[2020-05-08] MEDS: FUROSEMIDE 40 MG/4 ML VIAL IV SCH ×2 (09:36→17:43)
[2020-05-08] MEDS: METOPROLOL SUCCINATE XL 100 MG TABLET PO SCH ×2 (09:40→21:02)
[2020-05-08] MEDS ORDERED: SKIN HEALING OINT (AQUAPHOR) 50 GM TUBE TOP PRN (12:11)
[2020-05-08] MEDS: QUEtiapine 25 MG TABLET PO SCH (17:24)
[2020-05-08] MEDS: POTASSIUM CHLORIDE 20 MEQ TABLET PO SCH (17:24)
[2020-05-08] MEDS: cefTRIAXone 1,000 MG in SYRINGE 1 EACH IV SCH (17:36)
[2020-05-08] MEDS: APIXABAN 2.5 MG TABLET PO SCH (21:02)
[2020-05-08] MEDS: DUTASTERIDE 0.5 MG CAPSULE PO SCH (21:02)
[2020-05-09] MEDS: MULTIVITAMIN (OCUVITE) TABLET PO SCH (06:07)
[2020-05-09] MEDS: CALCIUM (CARBONATE)/VITAMIN D 600 MG-400 UNIT TABLET PO SCH (06:07)
[2020-05-09] MEDS: PRAMIPEXOLE 0.25 MG TABLET PO SCH (06:07)
[2020-05-09] MEDS: ASPIRIN CHEW 81 MG TABLET PO SCH (06:07)
[2020-05-09] MEDS: LEVOTHYROXINE 88 MCG TABLET PO SCH (06:07)
[2020-05-09 06:22] LABS: Basophils # 0.1 10*3/uL (0.0-0.2); Basophils % 0.7 % (0.0-0.8); Eosinophils # 0.2 10*3/uL (0.0-0.87); Eosinophils % 2.5 % (0.00-10.9); Hematocrit 40.9 VOL% (42.0-52.0); Hemoglobin 12.6 GM/DL (14.0-18.0); Immature Granulocytes % 0.8 %; Immature Granulocytes Absolute 0.07 #; Lymphocytes # 1.3 10*3/uL (1.4-4.0); Lymphocytes % 15.2 % (21.2-54.2); Mean Corpuscular HGB Conc 30.8 GM/DL (32-36); Mean Corpuscular Volume 93.4 FL (87-102); Monocytes % 9.7 % (1.7-12.7); Neutrophils % 71.1 % (38.7-73.9); Platelet Count 105 T/CUMM (130-400); Red Blood Count 4.38 MC/CUMM (3.8-5.5); White Blood Count 8.4 T/CUMM (4-12)
[2020-05-09 06:45] LABS: Hypochromasia Slight; Ovalocytes 1+; Platelet Estimate Adequate
[2020-05-09 06:47] LABS: Calcium 8.3 MG/DL (8.5-10.1); Osmolality,Calculated 281.7 MOS/KG (273-304); Potassium 3.5 MMOL/L (3.5-5.1)
[2020-05-09] MEDS: DILTIAZEM CD 240 MG CAPSULE PO SCH (09:02)
[2020-05-09] MEDS: FERROUS SULFATE 325 MG TABLET PO SCH (09:02)
[2020-05-09] MEDS: APIXABAN 2.5 MG TABLET PO SCH (09:02)
[2020-05-09] MEDS: MEMANTINE 10 MG TABLET PO SCH (09:02)
[2020-05-09] MEDS: PANTOPRAZOLE 40 MG TABLET PO SCH (09:02)
[2020-05-09] MEDS: POTASSIUM CHLORIDE 20 MEQ TABLET PO SCH (09:10)
[2020-05-09 09:11] VITALS: BP 107/75
[2020-05-09] MEDS: METOPROLOL SUCCINATE XL 100 MG TABLET PO SCH (09:11)
[2020-05-09] MEDS: FUROSEMIDE 40 MG/4 ML VIAL IV SCH (09:11)
== END 2020-05-09 11:22 | disposition home or self-care (01) ==
LOC: N.EDINP 10:42 → N.ED 10:42 → SUATTDRO 12:28 → N.TELEN 13:32
PROVIDERS: ADMIT Internal Medicine; ATTEND Phlebology

== ENCOUNTER 2020-05-27 08:44 | Inpatient (IN) ==
[2020-05-27] MEDS ORDERED: SODIUM CHLORIDE 0.9% 1,000 ML IV STA (09:25)
[2020-05-27 15:50] LABS: Basophils # 0.1 10*3/uL (0.0-0.2); Basophils % 0.8 % (0.0-0.8); Eosinophils # 0.2 10*3/uL (0.0-0.87); Eosinophils % 2.5 % (0.00-10.9); Hematocrit 52.6 VOL% (42.0-52.0); Hemoglobin 16.3 GM/DL (14.0-18.0); Immature Granulocytes % 0.5 %; Immature Granulocytes Absolute 0.04 #; Lymphocytes # 2.1 10*3/uL (1.4-4.0); Lymphocytes % 25.6 % (21.2-54.2); Mean Platelet Volume 12.2 FL (9.6-12.0); Neutrophils % 58.6 % (38.7-73.9); Platelet Count 116 T/CUMM (130-400); Red Blood Count 5.72 MC/CUMM (3.8-5.5); Red Cell Distribution Width 17.9 % (9.3-17.3); White Blood Count 8.4 T/CUMM (4-12)
[2020-05-27] MEDS ORDERED: ONDANSETRON 4 MG/2 ML VIAL IV PRN (16:02)
[2020-05-27] MEDS ORDERED: GLUCAGON 1 MG VIAL IM PRN (16:02)
[2020-05-27] MEDS ORDERED: hydrALAZINE 20 MG/1 ML VIAL IV PRN (16:02)
[2020-05-27] MEDS ORDERED: DEXTROSE 50% 25 GM/50 ML VIAL IV PRN (16:02)
[2020-05-27] MEDS ORDERED: guaiFENesin/DM ER 600-30 MG TABLET PO PRN (16:02)
[2020-05-27] MEDS ORDERED: ACETAMINOPHEN 325 MG TABLET PO PRN (16:02)
[2020-05-27] MEDS ORDERED: DOCUSATE SODIUM 100 MG CAPSULE PO PRN (16:02)
[2020-05-27 16:12] LABS: Alanine Aminotransferase < 9 U/L (16-61); Albumin 3.1 G/DL (3.4-5.0); Alkaline Phosphatase 103 U/L (45-117); Aspartate Amino Transferase 22 U/L (0-37); Blood Urea Nitrogen 62 MG/DL (7-18); Calcium 9.7 MG/DL (8.5-10.1); Carbon Dioxide 34 MMOL/L (21-32); Estimated Glom Filtration Rate 30 ML/MIN; Glucose 101 MG/DL (74-106); Sodium 143 MMOL/L (136-145); Total Protein 7.2 G/DL (6.4-8.2)
[2020-05-27] MEDS ORDERED: SODIUM CHLORIDE 0.9% 1,000 ML IV SCH (16:30)
[2020-05-27 16:50] LABS: Bilirubin,Urine Negative (Negative); Blood, Urine Negative (Negative); Glucose,Urine (UA) Negative (Negative); Hyaline Casts,Urine 7 /LPF (0-3); Ketones,Urine Negative (Negative); Mucus,Urine Occasional /LPF (Occasional); Nitrite,Urine Negative (Negative); Protein,Urine Negative; RBC,Urine 2 /HPF (0-4); Urine Appearance CLEAR (Clear); Urine Color Yellow (Yellow); Urine Specific Gravity 1.011 (1.001-1.035); Urine Urobilinogen < 2.0 EU/DL (0.2-1.0); WBC,Urine 1 /HPF (0-6)
[2020-05-27] MEDS: DUTASTERIDE 0.5 MG CAPSULE PO SCH (20:43)
[2020-05-27] MEDS: CARBIDOPA/LEVODOPA 25-100 MG TABLET PO SCH (20:43)
[2020-05-27] MEDS: QUEtiapine 25 MG TABLET PO SCH (20:43)
[2020-05-27] MEDS: METOPROLOL SUCCINATE XL 100 MG TABLET PO SCH (20:46)
[2020-05-28 03:55] LABS: Basophils # 0.1 10*3/uL (0.0-0.2); Basophils % 0.8 % (0.0-0.8); Eosinophils # 0.3 10*3/uL (0.0-0.87); Eosinophils % 4.1 % (0.00-10.9); Hematocrit 49.7 VOL% (42.0-52.0); Hemoglobin 15.5 GM/DL (14.0-18.0); Immature Granulocytes % 0.5 %; Immature Granulocytes Absolute 0.04 #; Lymphocytes # 1.9 10*3/uL (1.4-4.0); Lymphocytes % 25.5 % (21.2-54.2); Mean Corpuscular HGB Conc 31.2 GM/DL (32-36); Mean Corpuscular Volume 91.9 FL (87-102); Mean Platelet Volume 11.6 FL (9.6-12.0); Monocytes % 9.8 % (1.7-12.7); NRBC # 0.02 10*3/uL; Neutrophils % 59.3 % (38.7-73.9); Platelet Count 108 T/CUMM (130-400); Red Blood Count 5.41 MC/CUMM (3.8-5.5); Red Cell Distribution Width 17.6 % (9.3-17.3); White Blood Count 7.5 T/CUMM (4-12)
[2020-05-28 04:26] LABS: Calcium 8.8 MG/DL (8.5-10.1); Risk Ratio 3.66; Thyroid Stimulating Hormone 3.84 uIU/ml (0.358-3.74); VLDL CHOLESTEROL 29.4 MG/DL
[2020-05-28 04:31] LABS: Potassium 2.5 MMOL/L (3.5-5.1)
[2020-05-28] MEDS: MULTIVITAMIN (CENTRUM) TABLET PO SCH (05:30)
[2020-05-28] MEDS: LEVOTHYROXINE 88 MCG TABLET PO SCH (05:30)
[2020-05-28] MEDS: POTASSIUM CHLORIDE 20 MEQ TABLET PO PRN ×4 (05:30→16:41)
[2020-05-28] MEDS: ASPIRIN CHEW 81 MG TABLET PO SCH (05:30)
[2020-05-28] MEDS: CARBIDOPA/LEVODOPA 25-100 MG TABLET PO SCH ×3 (05:31→17:58)
[2020-05-28] MEDS: METOPROLOL SUCCINATE XL 100 MG TABLET PO SCH ×3 (05:35→20:49)
[2020-05-28] MEDS ORDERED: DILTIAZEM CD 240 MG CAPSULE PO SCH (06:00)
[2020-05-28] MEDS: MEMANTINE 10 MG TABLET PO SCH ×2 (10:01→20:49)
[2020-05-28] MEDS: DILTIAZEM CD 240 MG CAPSULE PO SCH (10:02)
[2020-05-28] MEDS: PANTOPRAZOLE 40 MG TABLET PO SCH (10:02)
[2020-05-28] MEDS: CALCIUM (CARBONATE)/VITAMIN D 600 MG-400 UNIT TABLET PO SCH (13:11)
[2020-05-28] MEDS: FERROUS SULFATE 325 MG TABLET PO SCH (13:11)
[2020-05-28] MEDS: QUEtiapine 25 MG TABLET PO SCH (17:58)
[2020-05-28] MEDS: DUTASTERIDE 0.5 MG CAPSULE PO SCH (17:58)
[2020-05-29] MEDS: MULTIVITAMIN (CENTRUM) TABLET PO SCH (05:43)
[2020-05-29] MEDS: ASPIRIN CHEW 81 MG TABLET PO SCH (05:43)
[2020-05-29] MEDS: CARBIDOPA/LEVODOPA 25-100 MG TABLET PO SCH ×2 (05:43→11:09)
[2020-05-29] MEDS: LEVOTHYROXINE 88 MCG TABLET PO SCH (05:43)
[2020-05-29 07:00] LABS: Calcium 9.6 MG/DL (8.5-10.1); Osmolality,Calculated 291.5 MOS/KG (273-304); Potassium 3.5 MMOL/L (3.5-5.1)
[2020-05-29 07:17] LABS: Basophils # 0.1 10*3/uL (0.0-0.2); Basophils % 0.8 % (0.0-0.8); Eosinophils # 0.3 10*3/uL (0.0-0.87); Eosinophils % 4.5 % (0.00-10.9); Hematocrit 52.9 VOL% (42.0-52.0); Immature Granulocytes % 0.5 %; Immature Granulocytes Absolute 0.03 #; Lymphocytes # 1.7 10*3/uL (1.4-4.0); Lymphocytes % 27.5 % (21.2-54.2); Mean Corpuscular HGB Conc 31.6 GM/DL (32-36); Mean Platelet Volume 12.8 FL (9.6-12.0); Monocytes % 9.8 % (1.7-12.7); NRBC # 0.03 10*3/uL; Neutrophils % 56.9 % (38.7-73.9); Red Blood Count 5.75 MC/CUMM (3.8-5.5); Red Cell Distribution Width 18.5 % (9.3-17.3); White Blood Count 6.2 T/CUMM (4-12)
[2020-05-29 07:20] LABS: Hemoglobin 16.7 GM/DL (14.0-18.0); Platelet Count 91 T/CUMM (130-400)
[2020-05-29 07:24] LABS: Anisocytosis Slight; Macrocytosis 1+; Ovalocytes Few; Platelet Estimate Decreased; Tear Drop Cells Few
[2020-05-29] MEDS: MEMANTINE 10 MG TABLET PO SCH (09:44)
[2020-05-29] MEDS: DILTIAZEM CD 240 MG CAPSULE PO SCH (09:44)
[2020-05-29] MEDS: METOPROLOL SUCCINATE XL 100 MG TABLET PO SCH (09:44)
[2020-05-29] MEDS: PANTOPRAZOLE 40 MG TABLET PO SCH (09:44)
[2020-05-29] MEDS: CALCIUM (CARBONATE)/VITAMIN D 600 MG-400 UNIT TABLET PO SCH (11:09)
[2020-05-29] MEDS: FERROUS SULFATE 325 MG TABLET PO SCH (11:09)
[2020-05-29 11:49] VITALS: BP 94/68
[2020-05-29] MEDS ORDERED: TUBERCULIN SKIN TEST 0.1 ML SYRINGE INTRADERM ONE (12:42)
== END 2020-05-29 14:40 | DRG 682 ==
LOC: N.EDINP 08:44 → N.ED 08:44 → N.4E 18:16
PROVIDERS: ADMIT Family Medicine; ATTEND Family Medicine

== ENCOUNTER 2020-07-01 16:46 | Inpatient (IN) ==
[2020-07-01] MEDS ORDERED: SODIUM CHLORIDE 0.9% 1,000 ML IV STA (17:34)
[2020-07-01 18:28] LABS: Basophils # 0.1 10*3/uL (0.0-0.2); Basophils % 0.6 % (0.0-0.8); Eosinophils # 0.1 10*3/uL (0.0-0.87); Eosinophils % 0.5 % (0.00-10.9); Hematocrit 50.2 VOL% (42.0-52.0); Hemoglobin 16.3 GM/DL (14.0-18.0); Immature Granulocytes % 0.4 %; Immature Granulocytes Absolute 0.05 #; Lymphocytes # 1.9 10*3/uL (1.4-4.0); Lymphocytes % 15.6 % (21.2-54.2); Mean Corpuscular HGB Conc 32.5 GM/DL (32-36); Mean Corpuscular Volume 91.3 FL (87-102); Monocytes % 14.6 % (1.7-12.7); Neutrophils % 68.3 % (38.7-73.9); Platelet Count 125 T/CUMM (130-400); Red Cell Distribution Width 16.5 % (9.3-17.3); White Blood Count 12.1 T/CUMM (4-12)
[2020-07-01 18:40] LABS: INR 1.1; Partial Thromboplastin Time 30.7 SECS (23.9-33.8)
[2020-07-01 18:45] LABS: Alanine Aminotransferase < 6 U/L (16-61); Albumin 2.7 G/DL (3.4-5.0); Alkaline Phosphatase 134 U/L (45-117); Aspartate Amino Transferase 27 U/L (0-37); Blood Urea Nitrogen 33 MG/DL (7-18); Calcium 8.6 MG/DL (8.5-10.1); Carbon Dioxide 30 MMOL/L (21-32); Estimated Glom Filtration Rate 55 ML/MIN; Glucose 110 MG/DL (74-106); Osmolality,Calculated 284.5 MOS/KG (273-304); Potassium 4.5 MMOL/L (3.5-5.1); Sodium 139 MMOL/L (136-145)
[2020-07-01 18:48] LABS: Bilirubin,Urine Negative (Negative); Blood, Urine Moderate mg/dL (Negative); Glucose,Urine (UA) Negative (Negative); Hyaline Casts,Urine 3 /LPF (0-3); Ketones,Urine Negative (Negative); Mucus,Urine Occasional /LPF (Occasional); Nitrite,Urine Negative (Negative); Protein,Urine Negative; RBC,Urine 26 /HPF (0-4); Squamous Epithelial Cell,Urine Occasional /HPF (0-10); Urine Appearance CLOUDY (Clear); Urine Color Amber (Yellow); Urine Specific Gravity 1.016 (1.001-1.035); WBC,Urine 297 /HPF (0-6)
[2020-07-01] MEDS ORDERED: cefTRIAXone 1,000 MG in SODIUM CHLORIDE 0.9% 100 ML IV STA (19:06)
[2020-07-01] MEDS ORDERED: ONDANSETRON 4 MG/2 ML VIAL IV PRN (19:53)
[2020-07-01] MEDS ORDERED: GLUCAGON 1 MG VIAL IM PRN (19:53)
[2020-07-01] MEDS ORDERED: guaiFENesin/DM ER 600-30 MG TABLET PO PRN (19:53)
[2020-07-01] MEDS ORDERED: hydrALAZINE 20 MG/1 ML VIAL IV PRN (19:53)
[2020-07-01] MEDS ORDERED: ACETAMINOPHEN 325 MG TABLET PO PRN (19:53)
[2020-07-01] MEDS ORDERED: diphenhydrAMINE CAP 25 MG CAPSULE PO PRN (19:53)
[2020-07-01] MEDS ORDERED: DEXTROSE 50% 25 GM/50 ML VIAL IV PRN (19:53)
[2020-07-01] MEDS ORDERED: AZITHROMYCIN INJ 500 MG in SODIUM CHLORIDE 0.9% 250 ML IV SCH (21:00)
[2020-07-01] MEDS: SODIUM CHLORIDE 0.9% 1,000 ML IV SCH (22:06)
[2020-07-01] MEDS: OSELTAMIVIR 75 MG CAPSULE PO SCH (23:09)
[2020-07-02] MEDS ORDERED: ALBUTEROL/IPRATROPIUM 3 ML NEB RESP TX PRN (03:32)
[2020-07-02] MEDS: SODIUM CHLORIDE 0.9% 1,000 ML IV SCH ×4 (05:03→20:26)
[2020-07-02 06:35] LABS: Basophils # 0.1 10*3/uL (0.0-0.2); Basophils % 0.5 % (0.0-0.8); Eosinophils % 0.1 % (0.00-10.9); Hematocrit 48.9 VOL% (42.0-52.0); Hemoglobin 15.1 GM/DL (14.0-18.0); Immature Granulocytes % 0.7 %; Immature Granulocytes Absolute 0.09 #; Lymphocytes # 1.7 10*3/uL (1.4-4.0); Lymphocytes % 13.5 % (21.2-54.2); Mean Corpuscular HGB Conc 30.9 GM/DL (32-36); Mean Corpuscular Volume 93.1 FL (87-102); Mean Platelet Volume 12.3 FL (9.6-12.0); Neutrophils % 72.2 % (38.7-73.9); Platelet Count 112 T/CUMM (130-400); Red Blood Count 5.25 MC/CUMM (3.8-5.5); Red Cell Distribution Width 16.7 % (9.3-17.3); White Blood Count 12.4 T/CUMM (4-12)
[2020-07-02 06:59] LABS: Albumin 2.4 G/DL (3.4-5.0); Bilirubin,Total 2.3 MG/DL (0.2-1.0); Calcium 8.4 MG/DL (8.5-10.1); Osmolality,Calculated 286.4 MOS/KG (273-304); Potassium 4.3 MMOL/L (3.5-5.1); Total Protein 6.2 G/DL (6.4-8.2)
[2020-07-02] MEDS: OSELTAMIVIR 75 MG CAPSULE PO SCH ×2 (09:34→20:06)
[2020-07-02] MEDS: CARBIDOPA/LEVODOPA 25-100 MG TABLET PO SCH ×2 (12:13→17:56)
[2020-07-02] MEDS: CALCIUM (CARBONATE)/VITAMIN D 600 MG-400 UNIT TABLET PO SCH (12:13)
[2020-07-02] MEDS: FERROUS SULFATE 325 MG TABLET PO SCH (12:13)
[2020-07-02] MEDS: MEMANTINE 10 MG TABLET PO SCH (17:56)
[2020-07-02] MEDS: POTASSIUM CHLORIDE 20 MEQ TABLET PO SCH (17:56)
[2020-07-02] MEDS ORDERED: cefTRIAXone 1,000 MG in SODIUM CHLORIDE 0.9% 100 ML IV SCH (20:30)
[2020-07-03] MEDS: SODIUM CHLORIDE 0.9% 1,000 ML IV SCH ×3 (02:04→21:24)
[2020-07-03] MEDS: POTASSIUM CHLORIDE 20 MEQ TABLET PO SCH ×2 (06:00→17:19)
[2020-07-03] MEDS: MEMANTINE 10 MG TABLET PO SCH ×2 (06:00→17:19)
[2020-07-03] MEDS: LEVOTHYROXINE 88 MCG TABLET PO SCH (06:00)
[2020-07-03] MEDS: CARBIDOPA/LEVODOPA 25-100 MG TABLET PO SCH ×3 (06:00→17:19)
[2020-07-03] MEDS ORDERED: TUBERCULIN SKIN TEST 0.1 ML SYRINGE INTRADERM ONE (09:31)
[2020-07-03] MEDS: OSELTAMIVIR 75 MG CAPSULE PO SCH ×2 (09:55→21:24)
[2020-07-03] MEDS: CALCIUM (CARBONATE)/VITAMIN D 600 MG-400 UNIT TABLET PO SCH (12:30)
[2020-07-03] MEDS: FERROUS SULFATE 325 MG TABLET PO SCH (12:30)
[2020-07-03] MEDS: AMPICILLIN 500 MG CAPSULE PO SCH ×3 (13:37→21:23)
[2020-07-04] MEDS: LEVOTHYROXINE 88 MCG TABLET PO SCH (05:32)
[2020-07-04] MEDS: CARBIDOPA/LEVODOPA 25-100 MG TABLET PO SCH ×3 (05:32→17:21)
[2020-07-04] MEDS: MEMANTINE 10 MG TABLET PO SCH ×2 (05:32→17:21)
[2020-07-04] MEDS: POTASSIUM CHLORIDE 20 MEQ TABLET PO SCH ×2 (05:32→17:21)
[2020-07-04] MEDS: AMPICILLIN 500 MG CAPSULE PO SCH ×4 (09:29→21:35)
[2020-07-04] MEDS: OSELTAMIVIR 75 MG CAPSULE PO SCH ×2 (09:30→21:35)
[2020-07-04] MEDS: FERROUS SULFATE 325 MG TABLET PO SCH (12:49)
[2020-07-04] MEDS: CALCIUM (CARBONATE)/VITAMIN D 600 MG-400 UNIT TABLET PO SCH (12:49)
[2020-07-04] MEDS: SODIUM CHLORIDE 0.9% 1,000 ML IV SCH (13:53)
[2020-07-04] MEDS: METOPROLOL SUCCINATE XL 25 MG TABLET PO SCH ×2 (13:54→21:35)
[2020-07-04] MEDS: DILTIAZEM CD 240 MG CAPSULE PO SCH (13:54)
[2020-07-05] MEDS: LEVOTHYROXINE 88 MCG TABLET PO SCH (05:24)
[2020-07-05] MEDS: CARBIDOPA/LEVODOPA 25-100 MG TABLET PO SCH ×3 (05:24→17:47)
[2020-07-05] MEDS: MEMANTINE 10 MG TABLET PO SCH ×2 (05:25→17:47)
[2020-07-05] MEDS: POTASSIUM CHLORIDE 20 MEQ TABLET PO SCH ×2 (05:25→17:47)
[2020-07-05 05:38] LABS: Basophils % 0.3 % (0.0-0.8); Eosinophils % 0.2 % (0.00-10.9); Hematocrit 46.6 VOL% (42.0-52.0); Hemoglobin 14.2 GM/DL (14.0-18.0); Immature Granulocytes % 2.5 %; Immature Granulocytes Absolute 0.29 #; Lymphocytes # 1.5 10*3/uL (1.4-4.0); Lymphocytes % 12.6 % (21.2-54.2); Mean Corpuscular HGB Conc 30.5 GM/DL (32-36); Mean Corpuscular Volume 95.5 FL (87-102); Mean Platelet Volume 13.6 FL (9.6-12.0); Monocytes % 13.2 % (1.7-12.7); NRBC # 0.03 10*3/uL; Neutrophils % 71.2 % (38.7-73.9); Platelet Count 116 T/CUMM (130-400); Red Blood Count 4.88 MC/CUMM (3.8-5.5); Red Cell Distribution Width 16.7 % (9.3-17.3); White Blood Count 11.5 T/CUMM (4-12)
[2020-07-05 05:55] LABS: Calcium 8.5 MG/DL (8.5-10.1); Osmolality,Calculated 287.7 MOS/KG (273-304)
[2020-07-05 06:08] LABS: Band Neutrophils 1 % (0-10); Lymphocytes 11 % (20-55); Segmented Neutrophils 78 % (50-85); Total Cells Counted 100
[2020-07-05] MEDS: AMPICILLIN 500 MG CAPSULE PO SCH ×4 (09:09→21:07)
[2020-07-05] MEDS: METOPROLOL SUCCINATE XL 25 MG TABLET PO SCH ×2 (09:09→21:07)
[2020-07-05] MEDS: OSELTAMIVIR 75 MG CAPSULE PO SCH ×2 (09:10→21:07)
[2020-07-05] MEDS: DILTIAZEM CD 240 MG CAPSULE PO SCH (09:10)
[2020-07-05] MEDS: FERROUS SULFATE 325 MG TABLET PO SCH (11:57)
[2020-07-05] MEDS: CALCIUM (CARBONATE)/VITAMIN D 600 MG-400 UNIT TABLET PO SCH (11:57)
[2020-07-06] MEDS: LEVOTHYROXINE 88 MCG TABLET PO SCH (05:25)
[2020-07-06] MEDS: POTASSIUM CHLORIDE 20 MEQ TABLET PO SCH (05:25)
[2020-07-06] MEDS: CARBIDOPA/LEVODOPA 25-100 MG TABLET PO SCH ×3 (05:25→17:03)
[2020-07-06] MEDS: MEMANTINE 10 MG TABLET PO SCH ×2 (05:25→17:03)
[2020-07-06 06:46] LABS: Basophils # 0.1 10*3/uL (0.0-0.2); Basophils % 0.5 % (0.0-0.8); Eosinophils % 0.2 % (0.00-10.9); Hematocrit 43.3 VOL% (42.0-52.0); Hemoglobin 14.3 GM/DL (14.0-18.0); Immature Granulocytes % 2.3 %; Immature Granulocytes Absolute 0.27 #; Lymphocytes # 1.4 10*3/uL (1.4-4.0); Lymphocytes % 11.5 % (21.2-54.2); Mean Corpuscular Volume 89.3 FL (87-102); Mean Platelet Volume 12.9 FL (9.6-12.0); Monocytes % 11.8 % (1.7-12.7); NRBC # 0.05 10*3/uL; Neutrophils % 73.7 % (38.7-73.9); Platelet Count 93 T/CUMM (130-400); Red Blood Count 4.85 MC/CUMM (3.8-5.5); Red Cell Distribution Width 16.4 % (9.3-17.3); White Blood Count 11.8 T/CUMM (4-12)
[2020-07-06 07:07] LABS: Calcium 8.6 MG/DL (8.5-10.1); Osmolality,Calculated 283.2 MOS/KG (273-304); Potassium 5.7 MMOL/L (3.5-5.1)
[2020-07-06 07:22] LABS: Platelet Estimate Decreased
[2020-07-06] MEDS: OSELTAMIVIR 75 MG CAPSULE PO SCH ×2 (09:59→21:43)
[2020-07-06] MEDS: METOPROLOL SUCCINATE XL 25 MG TABLET PO SCH ×2 (09:59→21:43)
[2020-07-06] MEDS: DILTIAZEM CD 240 MG CAPSULE PO SCH (09:59)
[2020-07-06] MEDS: AMPICILLIN 500 MG CAPSULE PO SCH ×4 (09:59→21:43)
[2020-07-06] MEDS: OSELTAMIVIR 75 MG CAPSULE PO ONE ×2 (11:36→11:51)
[2020-07-06] MEDS: CALCIUM (CARBONATE)/VITAMIN D 600 MG-400 UNIT TABLET PO SCH (12:01)
[2020-07-06] MEDS: FERROUS SULFATE 325 MG TABLET PO SCH (12:01)
[2020-07-07] MEDS: MEMANTINE 10 MG TABLET PO SCH (06:10)
[2020-07-07] MEDS: CARBIDOPA/LEVODOPA 25-100 MG TABLET PO SCH ×2 (06:10→12:08)
[2020-07-07] MEDS: LEVOTHYROXINE 88 MCG TABLET PO SCH (06:10)
[2020-07-07] MEDS: AMPICILLIN 500 MG CAPSULE PO SCH ×2 (09:03→12:08)
[2020-07-07] MEDS: METOPROLOL SUCCINATE XL 25 MG TABLET PO SCH (09:03)
[2020-07-07] MEDS: OSELTAMIVIR 75 MG CAPSULE PO SCH (09:04)
[2020-07-07] MEDS: DILTIAZEM CD 240 MG CAPSULE PO SCH (09:04)
[2020-07-07] MEDS: SODIUM CHLORIDE 0.9% 1,000 ML IV SCH (09:07)
[2020-07-07 11:27] VITALS: BP 95/68
[2020-07-07] MEDS: CALCIUM (CARBONATE)/VITAMIN D 600 MG-400 UNIT TABLET PO SCH (12:08)
[2020-07-07] MEDS: FERROUS SULFATE 325 MG TABLET PO SCH (12:09)
== END 2020-07-07 14:32 | DRG 690 ==
LOC: EDUNIT# → EDBD → N.ED 16:46 → N.EDINP 19:53 → SUATTDRO 19:53 → N.3E 22:00
PROVIDERS: ADMIT Internal Medicine Geriatric Medicine; ATTEND Internal Medicine